=== PATIENT | male | born 1945 | race Caucasian/White ===

== ENCOUNTER 2023-06-10 12:12 | Emergency (ER) | payer MEDICARE ==
[2023-06-10] MEDS ORDERED: Boostrix 0.5 ML (Tdap) VIAL (>/=7 yrs of age) ONE (13:03)
[2023-06-10] MEDS ORDERED: Bacitracin 1 PK ONE (13:32)
== END 2023-06-10 15:55 | disposition home or self-care (01) ==
LOC: NAV ERS 12:12
DX: S61.314A Laceration without foreign body of right ring finger with damage to nail, initial encounter (principal); W31.2XXA Contact with powered woodworking and forming machines, initial encounter
CPT/HCPCS: 12001; 90471; 90715